=== PATIENT | female | born 1940 | race Caucasian/White ===

== ENCOUNTER 2021-06-21 10:39 | Emergency (ER) | payer OTHER, SELFPAY ==
--- NOTE | 2021-06-21 10:42 | ED.DENTAL ---
HPI - Dental/Oral General Chief complaint: Dental/Oral Stated complaint: Tooth Pain Time Seen by Provider: 06/21/21 10:50 Source: patient, family (), RN notes reviewed and old records reviewed Mode of arrival: ambulatory Limitations: no limitations History of Present Illness HPI Narrative: 80-year-old female presents to the [facility] with complaints of left lower dental pain since , 3 days. States he tried calling there dental provider but nobody is answering. reports taking Tylenol with minimal relief. Denies fevers. Pain with chewing. MD Complaint: tooth pain Teeth map: 1. Multiple caries with fillings, poor dentition, excessive plaque noted. Swelling and redness along with tenderness to the gum. Mild external swelling without signs of cellulitic changes. Onset (ago): day(s) Related Data Home Medications Medication Instructions Recorded Confirmed atorvastatin 10 mg PO DAILY 06/21/21 06/21/21 metoprolol succinate 50 mg PO DAILY 06/21/21 06/21/21 quinapril 20 mg PO DAILY 06/21/21 06/21/21 Allergies Allergy/AdvReac Type Severity Reaction Status Date / Time No Known Allergies Allergy Verified 06/21/21 10:41 Review of Systems Review of Systems: All systems reviewed & are unremarkable except as noted in HPI and below Constitutional: Constitutional: Reports no additional constitutional complaints, Denies chills and Denies fever(s) Eyes: Eyes: Reports no additional eye complaints ENT: Reports as per HPI, Denies bleeding gums, Reports dental pain (left lower), Denies ear discharge, Denies headache(s), Denies hoarseness, Denies lip swelling, Denies mouth lesions, Denies mouth pain, Denies nasal congestion and Denies nasal discharge Comments: Dental pain Cardiovascular: Cardiovascular: Reports no additional cardiovascular complaints, Denies chest pain and Denies dyspnea Respiratory: Respiratory: Reports no additional respiratory complaints, Denies cough and Denies dyspnea Gastrointestinal: Gastrointestinal: Reports no additional gastrointestinal complaints Musculoskeletal: Musculoskeletal: Reports no additional musculoskeletal complaints Integumentary/Breasts: Skin/Breast: Reports system reviewed and no additional complaints, except as docu Neurologic: Reports system reviewed and no additional complaints, except as documented Psychiatric: Psychiatric: Reports no additional psychiatric complaints Allergic/Immunologic: Allergic/Immunologic: Reports no additional allergic/immunologic complaints PMFSH Past Medical History Medical History (Updated 06/21/21 @ 11:06 by Danni Booth) High cholesterol History of high blood pressure Stroke Social History Social History Smoking status: Never smoker Alcohol intake: current Substance use: never Substance use type: does not use Comments At the time of my signature, I reviewed and agree with the nursing past medical, surgical, social, and family history. There is no relevant family history pertinent to the patient complaint. Exam Const: General: healthy appearing, no acute distress and alert Nutritional Appearance: well nourished Orientation/consciousness: patient oriented x3 Limitations: no limitations HENMT: Head: normal to inspection Ears: external ears normal, TM's normal bilaterally and EAC's normal General nose exam: Normal external nose present and Normal nasal mucous membranes and turbinates present Face and sinus: normal facial exam Mouth: Yes Normal oral and palatal mucosa present Teeth and gingiva: abnormal tooth and associated gingiva lower left first molar tender and with associated gingival edema; not avulsed and without associated gingival fluctuance, caries and poor dentition Teeth image: 1. Tenderness with surrounding tissue erythema and swelling Throat: posterior oropharynx normal, tonsils normal and uvula midline Other: Mild swelling noted to the lower jaw wi
[2021-06-21 10:52] VITALS: BP 132/63; PULSE 63; RESP 16; TEMP 36.8; O2SAT 98
== END 2021-06-21 11:08 | disposition home or self-care (01) ==
PROVIDERS: Emergency Provider Nurse Practitioner
DX: K04.7 Periapical abscess without sinus (principal); K02.9 Dental caries, unspecified; E78.00 Pure hypercholesterolemia, unspecified; Z86.73 Personal history of transient ischemic attack (TIA), and cerebral infarction without residual deficits; I10 Essential (primary) hypertension
CPT/HCPCS: 99213; G0463